=== PATIENT | female | born 1990 | race Caucasian/White ===

== ENCOUNTER 2018-03-10 18:19 | Inpatient (IN) | payer BC ==
[2018-03-10] VITALS (10 sets, daily range): BP systolic 104–245; BP diastolic 53–76; PULSE 86–207; TEMP 98.5–98.9
[~2018-03-10] VITALS: Ht 170.2 cm; Wt 116.4 kg
[~2018-03-10 18:19] MED LIST: AMOXICILLIN 8751 TAB PO; FLEXERIL10 MG PO; MOTRIN 800800 MG/TAB PO; NORCO 325 MG-51 TAB PO; NUVARING VAG RING VG; VICODIN 5/5001 UDTAB PO; ZOFRAN ODT4 MG PO
[2018-03-10] MEDS ORDERED: PRENATAL MVI (18:34)
[2018-03-10 21:14] LABS: BASO % 0.2 % (0.0-2.0); EOS # 0.1 (0.0-0.7); EOS % 0.4 % (0-4.0); GRAN # 13.8 (1.4-6.5); GRAN % 82.2 % (42.2-75.2); HEMATOCRIT 37.8 % (37.0-47.0); HEMOGLOBIN 13.1 g/dl (12.5-16.0); LYMPH % 12.1 % (20.0-51.0); MEAN CELL VOLUME 94 fl (80.0-100.0); MEAN CORPUSCULAR HEMOGLOBIN 33 pg (27.0-31.0); MEAN CORPUSCULAR HGB CONC 35 g/dl (33.0-37.0); MEAN PLATELET VOLUME 11.5 fl (7.4-10.4); MONO # 0.8 (0.1-0.6); MONO % 4.6 % (1.7-9.3); PLATELET COUNT 269 K/mm3 (130-400); RED BLOOD COUNT 4.03 M/mm3 (4.10-5.30); REDCELL DISTRIBUTION WIDTH-CV 13.4 % (11.5-14.5)
[2018-03-11 00:11] VITALS: BP 140/82; PULSE 110
[2018-03-11 00:41] VITALS: BP 126/67; PULSE 101
[2018-03-11 05:25] VITALS: BP 124/71; PULSE 72; TEMP 98.1
[2018-03-11 07:40] VITALS: BP 126/67; PULSE 73; TEMP 97.8
[2018-03-11 08:07] LABS: HEMOGLOBIN 11.8 g/dl (12.5-16.0)
[2018-03-11 16:05] VITALS: BP 138/71; PULSE 83; TEMP 98.3
[2018-03-11 21:38] VITALS: BP 131/79; PULSE 85; TEMP 97.6
[2018-03-12 07:20] VITALS: BP 126/86; PULSE 78; TEMP 97.8
== END 2018-03-12 13:30 | disposition home or self-care (01) | DRG 775 ==
LOC: LDRO 18:19 → LDR 20:00 → OB 03-11 01:29
PROVIDERS: Obstetrics & Gynecology
PROC: 10E0XZZ Delivery of Products of Conception, External Approach (ICD-10-PCS; principal; 2018-03-10)
DX: O99.824 Streptococcus B carrier state complicating childbirth (principal); Z68.41 Body mass index [BMI] 40.0-44.9, adult; O99.214 Obesity complicating childbirth; E66.9 Obesity, unspecified; Z3A.39 39 weeks gestation of pregnancy; Z37.0 Single live birth
CPT/HCPCS: J2590; J2795; J7120

== ENCOUNTER 2021-07-20 19:57 | Inpatient (IN) | payer BC ==
[~2021-07-20] VITALS: Ht 167.6 cm; Wt 123.2 kg
[~2021-07-20 19:57] MED LIST changes: +PRENATAL MVI
--- NOTE | 2021-07-20 20:05 | NUR ---
Ambulatory to unit for labor assessment, accompanied by significant other. PT reports SROM @1850, clear fluid, some contractions. Orinted to room, monitor, plan of care. Questions invited and answered.
[2021-07-20 20:20] VITALS: BP 130/76; PULSE 98
[2021-07-20 21:30] VITALS: BP 121/80; PULSE 88; TEMP 98.4
[2021-07-20 21:58] LABS: BASO % 0.4 % (0.0-2.0); EOS # 0.1 K/mm3 (0.0-0.7); EOS % 0.6 % (0-4.0); GRAN # 7.8 K/mm3 (1.4-6.5); GRAN % 72.9 % (42.2-75.2); HEMOGLOBIN 11.2 g/dl (12.5-16.0); LYMPH # 2.1 K/mm3 (1.2-3.4); LYMPH % 19.5 % (20.0-51.0); MEAN CELL VOLUME 91 fl (80.0-100.0); MEAN CORPUSCULAR HEMOGLOBIN 30 pg (27.0-31.0); MEAN CORPUSCULAR HGB CONC 33 g/dl (33.0-37.0); MEAN PLATELET VOLUME 11.3 fl (7.4-10.4); MONO # 0.6 K/mm3 (0.1-0.6); PLATELET COUNT 261 K/mm3 (130-400); RED BLOOD COUNT 3.74 M/mm3 (4.10-5.30); REDCELL DISTRIBUTION WIDTH-CV 13.3 % (11.5-14.5)
[2021-07-20 21:59] LABS: HEMATOCRIT 33.9 % (37.0-47.0)
--- NOTE | 2021-07-20 22:25 | NUR ---
Pt reports contractions getting stronger, states "they're not bad enough for an epidural" Reviewed plan of care, will wait to recheck cervix until pt ready for epidural. Verbalizes understanding
[2021-07-20 23:00] VITALS: BP 134/82; PULSE 93
--- NOTE | 2021-07-20 23:10 | NUR ---
Requesting epidural. SVE as noted. Up to bathroom. 2322 LR started to R forearm IV site, bolus started. Pt sits at edge of bed. 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 EFM tracing maternal heart rate. 2350 FHT's with late deceleration to 70's. BP 97/54 late decel with next contraction. 2355 10mg Ephedrine Slow IV push 0000 IV leaking @ insertion site, no tenderness or swelling. Site dc'd.
[2021-07-21] VITALS (52 sets, daily range): BP systolic 72–146; BP diastolic 30–87; PULSE 51–106; TEMP 97.4–98.9
--- NOTE | 2021-07-21 00:15 | NUR ---
decelerations persist SVE as noted, to LL.
--- NOTE | 2021-07-21 01:55 | NUR ---
Dr Shah into room, SVE unchanged with pink tinged amniotic fluid. Dr Shah discusses possible C/S with pt and spouse r/t FHT's baby not descending into pelvis. Questions invited and answered. Pt tearful. Dr Shah to L&D desk, monitoring FHT's.
--- NOTE | 2021-07-21 02:30 | NUR ---
Dr Shah continues on unit.
--- NOTE | 2021-07-21 03:00 | NUR ---
SVE by Dr Shah, unchanged. reviews FHR tracing with pt and spouse. Questions invited and answered.
--- NOTE | 2021-07-21 03:30 | NUR ---
FHT's with intermittent variables to 70's. Dr Shah ccontinues on unit @ L&D desk.
--- NOTE | 2021-07-21 04:03 | NUR ---
To WL, FHT's to 70's,0404 to WR. 0408 to RL blankets between knees as wedge.
--- NOTE | 2021-07-21 04:45 | NUR ---
Dr Shah into room. GRETCHEN. To .
--- NOTE | 2021-07-21 05:39 | NUR ---
FHT's with late deceleration to 90's, returns to baseline by end of ctx. 054 FHT's to 60's after onset of next ctx, Pitocin gtt off after FHT's continue @ 60's x 30seconds, to WR then WL. 0547 O2 @ 8l mask.
--- NOTE | 2021-07-21 06:00 | NUR ---
Dr Shah into room, explains need for C/S, questions invited and answered. 0603 Off monitor to C/S.
--- NOTE | 2021-07-21 06:20 | NUR ---
0620: THIS NURSE TO OR, REPORT FROM SHAHAB MOSES RN, WILL ASSUME CARE AT THIS TIME 0625: DELIVERY VIA CSECTION OF A VIABLE FEMALE AT THIS TIME, BABY TO WARMER, CARE ASSUMED BY ANJANA ROSS. MOTHER TOLERATED PROCEDURE WELL, STABLE AT THIS TIME. 0725: PT TO PACU TO BEGIN RECOVERY. MODERATE LOCHIA WITH CLOTS PRESENT UPON INITIAL FUNDAL RUB. THIS NURSE CALLS FOR ANJANA MCCLELLAN TO ASSESS PT FOR PP HEMORRHAGE RISK FOLLOWING 1300ML EBL IN OR. PT HYPOTENSIVE AND PALE AT THIS TIME, ALERT AND ORIENTED BUT DROWSY. 0740: LARGE CLOT REMOVED FROM UTERUS FOLLOWING FUNDAL RUB. FUNDUS REMAINS FIRM AT UMBILICUS. MODERATE FLOW OF BLOOD CONTINUES FOLLOWING FUNDAL MASSAGE. CURRENT BP 85/43. AMADO NARROW GAUGE ENGINEER AT BEDSIDE TREATING BP. IM METHERGINE ADMINISTERED AT 0742 PER VORB BY . 0757: CALL TO AT THIS TIME TO REPORT INCREASE IN LOCHIA AND CLOTTING WITH FUNDAL MASSAGE. TORB TO ADMINISTER TXA 1G VIA IV AT THIS TIME. IN SURGERY AND REQUESTING AT BEDSIDE HE IS ON THE UNIT AT THIS TIME. 0800: AT BEDSIDE ASSESSING PT. VORB TO ADMINISTER RECTAL CYTOTEC AND PREPARING TO INSERT A BAKRI. 0822: BAKRI INSERTED BY AT THIS TIME. LOCHIA REMAINS BLEEDING AROUND BAKRI SYSTEM UPON INSERTION. NOTIFIED. 0850: ORDERS BY TO RETURN TO OR FOR FURTHER EVALUATION OF BLEEDING, CONSENTS SIGNED AT THIS TIME FOR POSSIBLE HYSTERECTOMY, PT AND FAMILY EDUCATED ON UPDATED POC WELL PT HEALTH STATUS. PT TO OR SUITE @ 0858 VIA BED FROM PACU. BAKRI REMAINS IN PLACE WITH 100ML NORMAL SALINE INSERTED. 0858: AND TO PERFORM EXPLORATORY LAPARATOMY WITH BAKRI READJUSTMENT, 300ML NS TOTAL IN BAKRI SYSTEM AT THIS TIME. 1U PRBC, 1U FFP AND 1U PLATELETS ADMINISTERED PER AMADO NARROW GAUGE ENGINEER THROUGHOUT SURGERY. 1005: PT TO PACU TO BEGIN RECOVERY, SEE PACU RECOVERY FLOWSHEET. STABLE AT THIS TIME. LOCHIA SCANT. DUNCAN DRAINING RED TINGED, CLEAR URINE. BAKRI DRAINAGE SYSTEM EMPTY, NO OUTPUT. VITAL SIGNS STABLE. PT DROWSY FROM ANESTHESIA, BUT RESPONDS APPROPRIATELY TO QUESTIONS. WILL CONTINUE RECOVERY PER PROTOCOL.
--- NOTE | 2021-07-21 11:06 | NUR ---
1106:UNIT #2 OF PRBC ADMINISTERED AT THIS TIME BY THIS NURSE IN PT'S RECOVERY ROOM. STARTED AT 60ML/HR PER PROTOCOL. THIS RN REMAINS AT PT BEDSIDE. VITAL SIGNS STABLE. 1125: TITRATED TO MAX RATE OF 150ML/HR AFTER FIRST 15 MINUTES. NO SIGNS OF TRANSFUSION REACTION.
[2021-07-21 15:42] LABS: BASO % 0.2 % (0.0-2.0); EOS % 0.1 % (0-4.0); GRAN # 11.6 K/mm3 (1.4-6.5); GRAN % 83.2 % (42.2-75.2); LYMPH # 1.5 K/mm3 (1.2-3.4); LYMPH % 10.5 % (20.0-51.0); MEAN CELL VOLUME 93 fl (80.0-100.0); MEAN CORPUSCULAR HGB CONC 33 g/dl (33.0-37.0); MEAN PLATELET VOLUME 11.6 fl (7.4-10.4); MONO # 0.8 K/mm3 (0.1-0.6); MONO % 5.7 % (1.7-9.3); PLATELET COUNT 173 K/mm3 (130-400); RED BLOOD COUNT 2.83 M/mm3 (4.10-5.30); REDCELL DISTRIBUTION WIDTH-CV 13.9 % (11.5-14.5)
[2021-07-21 15:49] LABS: HEMATOCRIT 26.2 % (37.0-47.0); HEMOGLOBIN 8.7 g/dl (12.5-16.0); MEAN CORPUSCULAR HEMOGLOBIN 31 pg (27.0-31.0)
--- NOTE | 2021-07-21 15:52 | NUR ---
PT'S DUNCAN DRAINING CLEAR YELLOW URINE, ABDOMINAL DRESSING CDI. PT INFANT AT THIS TIME, DENIES FURTHER NEED FOR HELP WITH . PT AND ORDERED SUPPER AND SHE IS TOLERATING PO ICE WATER WELL. SKIN IS NORMAL IN COLOR AND TEMPERATURE. REPORTS SHE IS "STARTING TO FEEL BETTER." VITAL SIGNS STABLE. NO BLEEDING AROUND BAKRI AT THIS TIME, NO BLOOD IN BAKRI DRAINAGE SYSTEM.
[2021-07-21 16:03] LABS: BILIRUBIN,TOTAL 0.6 mg/dL (0.2-1.2); CALCIUM 7.5 mg/dL (8.4-10.2); CREATININE, serum 0.59 mg/dL (0.57-1.11); POTASSIUM 3.9 mmol/L (3.5-4.5); TOTAL PROTEIN 4.8 gm/dL (6.2-8.1)
--- NOTE | 2021-07-21 17:54 | NUR ---
APPROX 10CC OF CLEAR FLUID IN BAKRI TUBING, NO BLODO IN COLLECTION BAG. NO BLEEDING AROUND BAKRI. DUNCAN DRAINING CLEAR YELLOW URINE. PT SITTING UP IN BED EATING SUPPER, TOLERATING PO INTAKE WELL. DENIES NAUSEA. SKIN COLOR RETURNING TO NORMAL. DENIES FEELING FAINT OR DIZZY. STABLE AT THIS TIME.
[2021-07-22] VITALS (33 sets, daily range): BP systolic 97–135; BP diastolic 48–73; PULSE 57–111; TEMP 97.5–98.8
--- NOTE | 2021-07-22 05:00 | NUR ---
0500 PERICARE DONE AND PAD CHANGED. PAD PUT ON AT 1999 LAST NIGHT AND WEIGHED NOW. 60 GRAMS SEROUS DRAINAGE NOTED.
[2021-07-22 05:22] LABS: HEMATOCRIT 22.5 % (37.0-47.0); HEMOGLOBIN 7.8 g/dl (12.5-16.0)
--- NOTE | 2021-07-22 07:45 | NUR ---
0639 ASSESSMENT COMPLETED AND PERICARE DONE WITH MINIMAL BLEEDING TO PAD. DR KULKARNI AT BEDSIDE ROMOVED 100 CC FROM DARIELA. PATIENT TOLERATES WELL.
--- NOTE | 2021-07-22 13:29 | NUR ---
1200 NO DRAINAGE NOTED TO DARIELA, AND DIME SIZE ON PAD. MODERATE SIZE CLOT NOTED IN TUBING. TUBING FLUSHED WITH 30 CC NS WITH 125 CC DARK RED BLOOD RETURN. DR KULKARNI CALLED AND UPDATED. ORDERS TO MONITOR OUTPUT FOR NEXT HOUR AND THEN CALL WITH UPDATE. 1230 Saurabh WILLIAM RN AT BEDSIDE TO TALK WITH PATIENT AND FAMILY. STATES THAT HER DARIELA BAG IS FILLING UP WITH BLOOD. Saurabh WILLIAM CALLS THIS NURSE FOR ASSISTANCE. DARIELA BAG HAS 500 CC OF BLOOD NOTED AND LARGE AMOUNT ON PAD. DR KULKARNI CALLED TO COME TO [facility] NOW FOR EVALUATION. UTERUS REMAINS FIRM AND AT MARKING ON STOMACH. PERICRE DONE AND PAD CHANGED, DARIELA OUT OF VAGINA AT THIS TIME. BP 180/82 PULSE 139 SAO2 97%. 1235 LR HUNG AT THIS TIME WIDE OPEN. Ivett BUSTAMANTE SURVEY RESEARCH ANALYST AT BEDSIDE 02 10L/MASK ON, SAO2 98%. 1240 DR [address]NI AND DR FOLEY AT BEDSIDE FOR EVALUATION. BEDSIDE SONO DONE AT THIS TIME PER DR KULKARNI. MANUAL VAGINAL EXAM BY DR FOLEY. LARGE CLOT NOTED WITH FREE FLOW . MEDS GIVEN PER Ivett BUSTAMANTE SURVEY RESEARCH ANALYST. SEE SURVEY RESEARCH ANALYST NOTES. IV IN LEFT ANTICUBITAL INFILTRATED. 1245 IV #20 RESTARTED IN LEFT INNER ANTICUBTAL AREA BY Ivett BUSTAMANTE SURVEY RESEARCH ANALYST AND MEDS GIVEN TO HELP PATIENT REST/RELAX WITH EVALUATION. 1247 HEMABATE IM GIVEN BY Ivett BUSTAMANTE, PER DR KULKARNI ORDERS. BP 148/61 P133 SAO2 100%. NO ACTIVE BLEEDING AT THIS TIME. 1300 TXA SLOW PUSH BY Saurabh WILLIAM RN PER DR KULKARNI ORDER. BP 110/60 P 100 SAO2 100%. PATIENT RESTS WITH EYES CLOSED. FAMILY REMAINS AT BEDSIDE. BEDSIDE SONO BY DR KULKARNI. NO ACTIVE BLEEDING AT THIS TIME. 1305 ALL PADS WEIGHED AT THIS TIME BY Saurabh WILLIAM RN FOR A TOTAL FOR 1150. DR KULKARNI UPDATED AND LABS ORDERED AT THIS TIME. 1320 LAB STAFF AT BEDSIDE. BP 120/44 P [address] AT THIS TIME. NO ACTIVE BLEEDING NOTED AND FUNDUS REMAINS AT MARKED SITE. PATIENT DENIES NEEDS AT THIS TIME 1400 100 CC PAD NOTED ON PAD AT THIS TIME. NO OTHER CHANGES. VS STABLE
[2021-07-22 13:33] LABS: HEMATOCRIT 18.9 % (37.0-47.0); HEMOGLOBIN 6.4 g/dl (12.5-16.0)
[2021-07-22 13:41] LABS: PROTHROMBIN TIME 10.7 SECONDS (9.7-12.8)
[2021-07-22 13:44] LABS: PARTIAL THROMBOPLASTIN TIME 26.4 SECONDS (26.0-37.0)
--- NOTE | 2021-07-22 16:34 | NUR ---
1555 1 BAG RBC STARTED BY Kevin PUGH RN AND GLORIA CERVANTES RN AT THIS TIME. PLEASE NOTES FOR QUESTIONS.
--- NOTE | 2021-07-22 19:00 | NUR ---
PT RESTING IN BED, NO SIGNS OF DISTRESS. PT DENIES FURTHER NEEDS AT THIS TIME.
--- NOTE | 2021-07-22 19:30 | NUR ---
MOTHER HOLDING BABE, NO SIGNS OF DISTRESS. MOTHER DENIES FURTHER NEEDS AT THIS TIME.
[2021-07-22 19:52] LABS: HEMATOCRIT 21.1 % (37.0-47.0); HEMOGLOBIN 7.3 g/dl (12.5-16.0)
--- NOTE | 2021-07-22 20:10 | NUR ---
PLAN OF CARE DISCUSSED WITH PATIENT AND PT VERBALIZED AN UNDERSTANDING. PATIENT STATED SHE WOULD LIKE TO TAKE GETTING OUT OF BED SLOWLY. RN RAISED HEAD OF BED TO ALMOST 90 DEGREE ANGLE AND PT TOLERATED WELL AND DENIES FEELING LIGHTHEADED OR DIZZY. PATIENT DENIES FURTHER NEEDS AT THIS TIME.
--- NOTE | 2021-07-22 20:41 | NUR ---
PT RESTING IN BED WITH SCDS APPLIED, NO SIGNS OF DISTRESS. PT STATES SHE FEELS LIKE SHE IS NOT READY TO AMBULATE AND WISHES TO REST FOR THE EVENING. PT DENIES FURTHER NEEDS AT THIS TIME.
--- NOTE | 2021-07-22 21:00 | NUR ---
PT APPEARS TO BE RESTING, NO SIGNS OF DISTRESS. PT DENIES FURTHER NEED AT THIS TIME
[2021-07-23] VITALS (7 sets, daily range): BP systolic 112–127; BP diastolic 58–66; PULSE 95–126; TEMP 97.8–99.1
[2021-07-23] MEDS ORDERED: FERROUS SU325 MG/TAB PO (09:14)
[2021-07-23] MEDS ORDERED: IBU800 M1 PO (09:15)
[2021-07-23] MEDS ORDERED: PERCOCET 325 MG1 TA2 PO (09:15)
--- NOTE | 2021-07-23 09:50 | NUR ---
0950- Pt slowly transitions from bed to standing, tolerates well. Pt walks independently to with standby assist x2. Pericare completed. Pt denies light-headedness or dizzines. Sal removed without difficulty. Pt transitions to wheelchair while bed changed and moved to 209. Pt taken to room via wheelchair and transitions to bed independently. Call light within reach.
[2021-07-24 08:47] VITALS: BP 125/72; PULSE 105; TEMP 97.8
== END 2021-07-24 11:05 | disposition home or self-care (01) | DRG 787 ==
LOC: LDRO 19:57 → LDR 20:30 → LDRO 20:31 → LDR 20:32 → OB 07-23 10:00
PROVIDERS: Student in an Organized Health Care Education/Training Program; ADMIT Obstetrics & Gynecology
PROC: 10D00Z1 Extraction of Products of Conception, Low, Open Approach (ICD-10-PCS; principal; 2021-07-21)
PROC: 0W3R0ZZ Control Bleeding in Genitourinary Tract, Open Approach (ICD-10-PCS; 2021-07-21)
PROC: 0WJJ0ZZ Inspection of Pelvic Cavity, Open Approach (ICD-10-PCS; 2021-07-21)
PROC: 3E033VJ Introduction of Other Hormone into Peripheral Vein, Percutaneous Approach (ICD-10-PCS; 2021-07-21)
PROC: 30233N1 Transfusion of Nonautologous Red Blood Cells into Peripheral Vein, Percutaneous Approach (ICD-10-PCS; 2021-07-21)
DX: O99.214 Obesity complicating childbirth (principal); D62 Acute posthemorrhagic anemia; O90.81 Anemia of the puerperium; O76 Abnormality in fetal heart rate and rhythm complicating labor and delivery; O62.0 Primary inadequate contractions; O26.53 Maternal hypotension syndrome, third trimester; O72.1 Other immediate postpartum hemorrhage; Z3A.40 40 weeks gestation of pregnancy; Z37.0 Single live birth; Z86.16 Personal history of COVID-19
CPT/HCPCS: J0171; J0330; J0690; J1885; J1940; J2175; J2210; J2250; J2370; J2590; J2704; J2710; J3010; J7050; J7120; P9016; P9035

== ENCOUNTER 2021-10-04 16:00 | Outpatient (RCR) | payer BC ==
[2021-09-28 16:37] VITALS: BP 126/78; PULSE 69; TEMP 98
[2021-09-30 16:56] VITALS: BP 142/80; PULSE 81; TEMP 99.1
[~2021-10-04] VITALS: Ht 167.6 cm; Wt 115.7 kg
[~2021-10-04 16:00] MED LIST changes: +FERROUS SU325 MG/TAB PO; +FOLIC ACID 11 MG/TA1 PO; +IBU800 M1 PO; +PERCOCET 325 MG1 TA2 PO
[2021-10-04 16:12] VITALS: BP 128/80; PULSE 88; TEMP 97.9
== END 2021-10-04 18:45 | disposition home or self-care (01) ==
LOC: EUO 16:00
DX: D50.9 Iron deficiency anemia, unspecified (principal)
CPT/HCPCS: J1756; J7050